=== PATIENT | female | born 1975 | race African-American/Black ===

== ENCOUNTER 2024-03-29 17:50 | Emergency (ER) | payer OTHER ==
[2024-03-29 18:04] VITALS: BP 177/75; PULSE 84; RESP 18; TEMP 99; BMI 29.2
[2024-03-29 20:51] LABS: BASO % 0.6 % (0-2.0); EOS % 0.3 % (0-4.5); HEMATOCRIT 35.2 % (32.4-45.2); HEMOGLOBIN 12.1 GM/dL (10.7-15.3); LYMPH % 34.1 % (8-40); MCH 30.8 pg (25.7-33.7); MCHC 34.3 g/dl (32.0-36.0); MEAN CELL VOLUME 89.6 fl (80-96); MEAN PLT VOLUME 8.6 fl (7.5-11.1); MONO % 9.9 % (3.8-10.2); NEUT % 55.1 % (42.8-82.8); PLATELET COUNT 235 10^3/uL (134-434); RBC 3.93 M/mm3 (3.60-5.2); RDW 15.2 % (11.6-15.6); WHITE BLOOD COUNT 4.6 K/mm3 (4.0-10.0)
[2024-03-29 20:56] LABS: INR 0.98 (0.83-1.09); PROTHROMBIN TIME (PATIENT) 11.3 SEC (9.7-13.0)
[2024-03-29 21:08] LABS: POTASSIUM 3.8 mmol/L (3.5-5.1)
[2024-03-29 21:10] LABS: CALCIUM 9.1 mg/dL (8.5-10.1)
[2024-03-29 21:11] LABS: ALBUMIN 3.5 g/dl (3.4-5.0)
[2024-03-29 21:14] LABS: CREATININE 0.6 mg/dL (0.55-1.3)
[2024-03-29 21:16] LABS: BILIRUBIN,TOTAL 0.5 mg/dL (0.2-1); TOT PROT 8.3 g/dl (6.4-8.2)
[2024-03-29 21:21] LABS: BLOOD UREA NITROGEN 8.6 mg/dL (7-18)
== END 2024-03-29 21:45 | disposition home or self-care (01) ==
LOC: JERFT 17:50
DX: L95.9 Vasculitis limited to the skin, unspecified (principal); R21 Rash and other nonspecific skin eruption
CPT/HCPCS: 36415; 80053; 85025; 85610; 86850; 86900; 86901; 99283-25